=== PATIENT | female | born 1970 | race Caucasian/White ===

== ENCOUNTER 2018-11-09 11:08 | Emergency (ER) | payer MEDICAID ==
[~2018-11-09] VITALS: Ht 162.6 cm; Wt 58.5 kg
[2018-11-09 11:15] VITALS: Ht 162.6 cm; Wt 58.5 kg
[2018-11-09 14:34] VITALS: BP 145/93
== END 2018-11-09 14:34 | disposition home or self-care (01) ==
LOC: EDBD 11:08 → ED 11:08
DX: S82.892A Other fracture of left lower leg, initial encounter for closed fracture (principal); I10 Essential (primary) hypertension; W01.0XXA Fall on same level from slipping, tripping and stumbling without subsequent striking against object, initial encounter; Y93.89 Activity, other specified; Y92.89 Other specified places as the place of occurrence of the external cause; Y99.8 Other external cause status